=== PATIENT | male | born 1970 ===

== ENCOUNTER → 2021-04-26 | Outpatient (CLI) | payer OTHER | END | disposition home or self-care (01) | LOC: PPH VACUNA 08:05 | PROVIDERS: ATTEND Emergency Medicine Pediatric Emergency Medicine | DX: Z23 Encounter for immunization (principal) ==

== ENCOUNTER 2021-10-25 08:00 | Outpatient (CLI) | payer OTHER | END 2021-10-25 08:30 | disposition home or self-care (01) | LOC: PPH VACUNA 08:00 | PROVIDERS: ATTEND Emergency Medicine Pediatric Emergency Medicine | DX: Z23 Encounter for immunization (principal) ==

== ENCOUNTER 2022-04-07 13:00 | Outpatient (CLI) | payer OTHER | END 2022-04-07 13:10 | disposition home or self-care (01) | LOC: PPH VACUNA 13:00 | PROVIDERS: ATTEND Emergency Medicine Pediatric Emergency Medicine | DX: Z23 Encounter for immunization (principal) ==

== ENCOUNTER 2022-12-23 09:03 | Emergency (ER) | payer OTHER ==
[~2022-12-23] VITALS: Ht 170.2 cm; Wt 81.6 kg
[2022-12-23] MEDS ORDERED: KETO10TA2 PO (11:46)
[2022-12-23] MEDS ORDERED: CYCLOBENZAPRINE10 MG PO (11:46)
[2022-12-23] MEDS ORDERED: GABAPENTIN100 M2 PO (11:46)
== END 2022-12-23 11:49 | disposition home or self-care (01) ==
LOC: ER 09:03
DX: M54.31 Sciatica, right side (principal); M79.604 Pain in right leg